=== PATIENT | female | born 1965 | race Caucasian/White ===

== ENCOUNTER → 2021-01-29 | Outpatient (CLI) | payer BC ==
[~2021-01-29] MED LIST: ASPIRIN 81M81 MG/TA2 PO; ATORVASTATIN CA40 MG PO; CYCLOBENZAPRINE10 M1 PO; DECADRON6 M1 PO; HYDROCHLOROTH12.5 M1 PO; HYDROCHLOROTH12.5 M2 PO; LOPRESSOR 225 MG/TAB PO; ONDANSETRON ODT8 MG PO; PREDNISONE20 MG PO; PROAIR HFA0.09 MG/AC IH; PROTONIX20 M1 PO; VIBRAMYCIN HYC100 MG PO; VITAMIN D31250 MCG PO; ZITHROMAX500 M2 PO
[2021-01-29 10:45] LABS: EOS # 0.2 (0.04-0.40); EOS % 2.9 % (1.0-5.0); HEMATOCRIT 42.7 % (37.0-47.0); HEMOGLOBIN 13.7 g/dL (12.5-16.0); LYMPH# 1.8 (1.50-4.00); MEAN CELL VOLUME 89 fl (78-100); MEAN CORPUSCULAR HEMOGLOBIN 29 pg (27-31); MEAN CORPUSCULAR HGB CONC 32 g/dL (33-37); MONO # 0.5 (0.20-0.80); NEU # 5.7 (1.40-6.50); PLATELET COUNT 361 K/mm3 (130-400); RED BLOOD COUNT 4.81 M/mm3 (4.10-5.30); RED CELL DISTRIBUTION WIDTH 12.6 % (11.5-14.5); WHITE BLOOD COUNT 8.3 K/mm3 (4.8-10.8)
[2021-01-29 10:49] LABS: POTASSIUM 4.6 mmol/L (3.5-5.1)
[2021-01-29 10:50] LABS: ALBUMIN 4.3 g/dL (3.5-5.0)
[2021-01-29 10:51] LABS: CALCIUM 9.7 mg/dL (8.3-10.5)
[2021-01-29 10:52] LABS: TOTAL PROTEIN 7.2 g/dL (6.4-8.3)
[2021-01-29 10:54] LABS: TOTAL BILIRUBIN 0.7 mg/dL (0.2-1.2)
== END ==
LOC: LAB 10:22
PROVIDERS: Family Medicine
DX: I10 Essential (primary) hypertension (principal); E78.5 Hyperlipidemia, unspecified; K59.09 Other constipation; E55.9 Vitamin D deficiency, unspecified

== ENCOUNTER → 2021-02-07 | Day surgery (SDC) | payer BC | LOC: MSO 07:33 | DX: Z12.11 Encounter for screening for malignant neoplasm of colon (principal); D12.2 Benign neoplasm of ascending colon; D12.0 Benign neoplasm of cecum; J44.9 Chronic obstructive pulmonary disease, unspecified; D12.5 Benign neoplasm of sigmoid colon; J45.20 Mild intermittent asthma, uncomplicated; I10 Essential (primary) hypertension; I25.2 Old myocardial infarction; E78.5 Hyperlipidemia, unspecified; K21.9 Gastro-esophageal reflux disease without esophagitis; F17.290 Nicotine dependence, other tobacco product, uncomplicated; E78.00 Pure hypercholesterolemia, unspecified; I25.10 Atherosclerotic heart disease of native coronary artery without angina pectoris; K59.09 Other constipation; E66.9 Obesity, unspecified; Z68.37 Body mass index [BMI] 37.0-37.9, adult; Z79.899 Other long term (current) drug therapy; Z79.82 Long term (current) use of aspirin | CPT/HCPCS: 00811; J2704; J7120 ==

== ENCOUNTER → 2021-03-11 | Outpatient (CLI) | payer BC | LOC: LAB 10:57 | DX: J02.9 Acute pharyngitis, unspecified (principal) ==

== ENCOUNTER 2021-05-02 20:10 | Emergency (ER) | payer BC ==
[2021-05-02] MEDS ORDERED: LOPRESSOR 225 MG/TAB PO (20:24)
[2021-05-02] MEDS ORDERED: HYDROCHLOROTH12.5 M1 PO (20:24)
[2021-05-02] MEDS ORDERED: PROTONIX20 M1 PO (20:25)
[2021-05-02] MEDS ORDERED: ASPIRIN 81M81 MG/TA2 PO (20:25)
[2021-05-02] MEDS ORDERED: VITAMIN D31250 MCG PO (20:26)
[2021-05-02] MEDS ORDERED: CYCLOBENZAPRINE10 M1 PO (20:57)
[2021-05-02 21:08] VITALS: BP 143/91
== END 2021-05-02 21:06 | disposition home or self-care (01) ==
LOC: ED 20:10
DX: M54.2 Cervicalgia (principal); F43.9 Reaction to severe stress, unspecified; I10 Essential (primary) hypertension; K21.9 Gastro-esophageal reflux disease without esophagitis; F17.200 Nicotine dependence, unspecified, uncomplicated

== ENCOUNTER → 2021-06-17 | Outpatient (CLI) | payer BC | LOC: LAB 15:20 | DX: U07.1 COVID-19 (principal) ==

== ENCOUNTER 2021-06-20 12:12 | Emergency (ER) | payer BC ==
[~2021-06-20 12:12] MED LIST changes: -ATORVASTATIN CA40 MG PO; -DECADRON6 M1 PO; -HYDROCHLOROTH12.5 M2 PO; -ONDANSETRON ODT8 MG PO; -PREDNISONE20 MG PO; -PROAIR HFA0.09 MG/AC IH; -VIBRAMYCIN HYC100 MG PO; -ZITHROMAX500 M2 PO
[2021-06-20] MEDS ORDERED: HYDROCHLOROTH12.5 M2 PO (12:22)
[2021-06-20] MEDS ORDERED: ATORVASTATIN CA40 MG PO (12:22)
[2021-06-20 13:36] LABS: ALBUMIN 4.1 g/dL (3.5-5.0); POTASSIUM 3.7 mmol/L (3.5-5.1)
[2021-06-20 13:37] LABS: CALCIUM 9.4 mg/dL (8.3-10.5)
[2021-06-20 13:39] LABS: TOTAL PROTEIN 7.5 g/dL (6.4-8.3)
[2021-06-20 13:40] LABS: TOTAL BILIRUBIN 0.7 mg/dL (0.2-1.2)
[2021-06-20 13:47] LABS: BASO # 0.03 (0.02-0.10); EOS # 0.01 (0.04-0.40); EOS % 0.1 % (1.0-5.0); HEMATOCRIT 45.8 % (37.0-47.0); LYMPH# 1.32 (1.50-4.00); MEAN CELL VOLUME 87 fl (78-100); MEAN CORPUSCULAR HEMOGLOBIN 28 pg (27-31); MEAN CORPUSCULAR HGB CONC 33 g/dL (33-37); MONO # 0.36 (0.20-0.80); PLATELET COUNT 260 K/mm3 (130-400); RED BLOOD COUNT 5.28 M/mm3 (4.10-5.30); RED CELL DISTRIBUTION WIDTH 12.7 % (11.5-14.5)
[2021-06-20] MEDS ORDERED: ZITHROMAX500 M2 PO (14:25)
[2021-06-20] MEDS ORDERED: PROAIR HFA0.09 MG/AC IH (14:25)
[2021-06-20] MEDS ORDERED: PREDNISONE20 MG PO (14:25)
[2021-06-20 15:55] VITALS: BP 148/89
== END 2021-06-20 15:45 | disposition home or self-care (01) ==
LOC: ED 12:12
PROVIDERS: Internal Medicine
DX: U07.1 COVID-19 (principal); J40 Bronchitis, not specified as acute or chronic; Z87.891 Personal history of nicotine dependence
CPT/HCPCS: J0696; J2930; J7030

== ENCOUNTER 2021-06-27 17:44 | Emergency (ER) | payer BC ==
[~2021-06-27 17:44] MED LIST changes: +ATORVASTATIN CA40 MG PO; +HYDROCHLOROTH12.5 M2 PO; +PREDNISONE20 MG PO; +PROAIR HFA0.09 MG/AC IH; +ZITHROMAX500 M2 PO
[2021-06-27 19:11] LABS: BASO # 0.01 (0.02-0.10); EOS # 0.05 (0.04-0.40); EOS % 0.8 % (1.0-5.0); HEMATOCRIT 43.9 % (37.0-47.0); HEMOGLOBIN 14.8 g/dL (12.5-16.0); LYMPH# 1.37 (1.50-4.00); MEAN CELL VOLUME 85 fl (78-100); MEAN CORPUSCULAR HEMOGLOBIN 29 pg (27-31); MEAN CORPUSCULAR HGB CONC 34 g/dL (33-37); MEAN PLATELET VOLUME 9.7 fl (7.4-10.4); MONO # 0.38 (0.20-0.80); NEU # 4.27 (1.40-6.50); PLATELET COUNT 221 K/mm3 (130-400); RED BLOOD COUNT 5.16 M/mm3 (4.10-5.30); RED CELL DISTRIBUTION WIDTH 12.9 % (11.5-14.5); WHITE BLOOD COUNT 6.2 K/mm3 (4.8-10.8)
[2021-06-27 19:23] LABS: ALBUMIN 3.3 g/dL (3.5-5.0)
[2021-06-27 19:24] LABS: POTASSIUM 3.2 mmol/L (3.5-5.1)
[2021-06-27 19:25] LABS: CALCIUM 9.1 mg/dL (8.3-10.5)
[2021-06-27 19:26] LABS: TOTAL PROTEIN 6.3 g/dL (6.4-8.3)
[2021-06-27 19:28] LABS: TOTAL BILIRUBIN 0.7 mg/dL (0.2-1.2)
[2021-06-27 19:55] LABS: D-DIMER 0.27 mg/L FEU (0.15-0.50)
[2021-06-27 20:15] LABS: ERYTHROCYTE SEDIMENTATION RATE 25 mm/hr (0-30)
[2021-06-27] MEDS ORDERED: DECADRON6 M1 PO (22:42)
[2021-06-27] MEDS ORDERED: VIBRAMYCIN HYC100 MG PO (22:42)
[2021-06-27] MEDS ORDERED: ONDANSETRON ODT8 MG PO (22:45)
[2021-06-27 23:13] VITALS: BP 130/75
== END 2021-06-27 23:13 | disposition home or self-care (01) ==
LOC: ED 17:44
PROVIDERS: Nurse Practitioner Family
DX: U07.1 COVID-19 (principal); J12.82 Pneumonia due to coronavirus disease 2019; E87.6 Hypokalemia; I25.10 Atherosclerotic heart disease of native coronary artery without angina pectoris; I25.2 Old myocardial infarction; I10 Essential (primary) hypertension; E78.00 Pure hypercholesterolemia, unspecified; F17.200 Nicotine dependence, unspecified, uncomplicated; Z79.899 Other long term (current) drug therapy; Z79.82 Long term (current) use of aspirin
CPT/HCPCS: J1100; J1885; J2405; J3480; J7030

== ENCOUNTER → 2021-08-20 | Outpatient (CLI) | payer BC ==
[~2021-08-20] MED LIST changes: +DECADRON6 M1 PO; +ONDANSETRON ODT8 MG PO; +VIBRAMYCIN HYC100 MG PO
[2021-08-20 14:55] LABS: BASO # 0.04 K/mm3 (0.02-0.10); EOS # 0.47 K/mm3 (0.04-0.40); EOS % 5.8 % (1.0-5.0); HEMATOCRIT 42.5 % (37.0-47.0); HEMOGLOBIN 13.8 g/dL (12.5-16.0); LYMPH# 2.38 K/mm3 (1.50-4.00); MEAN CELL VOLUME 88 fl (78-100); MEAN CORPUSCULAR HEMOGLOBIN 29 pg (27-31); MEAN CORPUSCULAR HGB CONC 33 g/dL (33-37); MEAN PLATELET VOLUME 8.8 fl (7.4-10.4); MONO # 0.51 K/mm3 (0.20-0.80); NEU # 4.66 K/mm3 (1.40-6.50); PLATELET COUNT 298 K/mm3 (130-400); RED BLOOD COUNT 4.82 M/mm3 (4.10-5.30); RED CELL DISTRIBUTION WIDTH 12.9 % (11.5-14.5); WHITE BLOOD COUNT 8.1 K/mm3 (4.8-10.8)
[2021-08-20 15:03] LABS: POTASSIUM 3.9 mmol/L (3.5-5.1); SODIUM 142 mmol/L (136-145)
[2021-08-20 15:05] LABS: GLUCOSE 95 mg/dL (65-105); TOTAL PROTEIN 6.6 g/dL (6.4-8.3)
[2021-08-20 15:06] LABS: CARBON DIOXIDE 27 mmol/L (22-29)
[2021-08-20 15:07] LABS: TOTAL BILIRUBIN 0.7 mg/dL (0.2-1.2)
[2021-08-20 15:10] LABS: AST-SGOT 20 U/L (5-34)
[2021-08-20 15:12] LABS: ALT/SGPT 18 U/L (0-55)
== END ==
LOC: LAB 14:40
PROVIDERS: Family Medicine
DX: I10 Essential (primary) hypertension (principal)

== ENCOUNTER → 2021-08-22 | Outpatient (CLI) | payer BC | LOC: RAD 10:28 | DX: Z13.6 Encounter for screening for cardiovascular disorders (principal); M79.89 Other specified soft tissue disorders ==

== ENCOUNTER → 2022-04-22 | Outpatient (CLI) | payer BC ==
[~2022-04-22] MED LIST changes: +ANTIVERT12.5 M1 PO; +MELOXICAM15 MG PO; +PANTOPRAZOLE SO40 MG PO
[2022-04-22 15:43] LABS: BASO # 0.05 K/mm3 (0.02-0.10); HEMATOCRIT 40.6 % (37.0-47.0); HEMOGLOBIN 13.5 g/dL (12.5-16.0); LYMPH# 1.96 K/mm3 (1.50-4.00); MEAN CELL VOLUME 89 fl (78-100); MEAN CORPUSCULAR HEMOGLOBIN 30 pg (27-31); MEAN CORPUSCULAR HGB CONC 33 g/dL (33-37); MEAN PLATELET VOLUME 8.5 fl (7.4-10.4); MONO # 0.57 K/mm3 (0.20-0.80); NEU # 7.12 K/mm3 (1.40-6.50); PLATELET COUNT 422 K/mm3 (130-400); RED BLOOD COUNT 4.56 M/mm3 (4.10-5.30); RED CELL DISTRIBUTION WIDTH 12.8 % (11.5-14.5); WHITE BLOOD COUNT 9.9 K/mm3 (4.8-10.8)
[2022-04-22 15:56] LABS: ALBUMIN 3.8 g/dL (3.5-5.0); POTASSIUM 3.7 mmol/L (3.5-5.1)
[2022-04-22 15:57] LABS: CALCIUM 9.3 mg/dL (8.3-10.5)
[2022-04-22 15:59] LABS: TOTAL PROTEIN 6.6 g/dL (6.4-8.3)
[2022-04-22 16:01] LABS: TOTAL BILIRUBIN 0.4 mg/dL (0.2-1.2)
[2022-04-22 17:05] LABS: URINE APPEARANCE HAZY; URINE BILIRUBIN NEGATIVE (NEGATIVE); URINE BLOOD NEGATIVE (NEGATIVE); URINE COLOR YELLOW; URINE GLUCOSE NEGATIVE (NEGATIVE); URINE KETONE TRACE (NEGATIVE); URINE LEUKOCYTE ESTERASE NEGATIVE (NEGATIVE); URINE NITRATE NEGATIVE (NEGATIVE); URINE PROTEIN(semi-quant) NEGATIVE (NEGATIVE); URINE UROBILINOGEN NORMAL (NORMAL); URINE WBC 0-1 /hpf (0-3)
[2022-04-22 17:06] LABS: URINE MUCUS PRESENT (NOT PRESENT)
== END ==
LOC: LAB 15:26
PROVIDERS: Family Medicine
DX: Z00.00 Encounter for general adult medical examination without abnormal findings (principal); Z12.39 Encounter for other screening for malignant neoplasm of breast; R46.81 Obsessive-compulsive behavior; J44.9 Chronic obstructive pulmonary disease, unspecified; I10 Essential (primary) hypertension; J30.2 Other seasonal allergic rhinitis; I25.10 Atherosclerotic heart disease of native coronary artery without angina pectoris; K21.9 Gastro-esophageal reflux disease without esophagitis; E66.9 Obesity, unspecified; E78.5 Hyperlipidemia, unspecified; E55.9 Vitamin D deficiency, unspecified; R10.32 Left lower quadrant pain

== ENCOUNTER → 2022-04-24 | Outpatient (CLI) | payer BC | LOC: RAD 09:00 | DX: K57.32 Diverticulitis of large intestine without perforation or abscess without bleeding (principal); Z98.890 Other specified postprocedural states | CPT/HCPCS: Q9967 ==

== ENCOUNTER → 2022-04-29 | Outpatient (CLI) | payer BC | LOC: LAB 15:14 → MAMMO 15:14 | DX: Z12.31 Encounter for screening mammogram for malignant neoplasm of breast (principal); E55.9 Vitamin D deficiency, unspecified ==

== ENCOUNTER → 2022-06-24 | Outpatient (CLI) | payer BC | LOC: RAD 08:05 | DX: I12.9 Hypertensive chronic kidney disease with stage 1 through stage 4 chronic kidney disease, or unspecified chronic kidney disease (principal); N18.31 Chronic kidney disease, stage 3a ==

== ENCOUNTER → 2022-08-04 | Outpatient (CLI) | payer BC ==
[2022-08-04 08:39] LABS: URINE WBC 0 /hpf (0-3)
[2022-08-04 08:52] LABS: BASO # 0.03 K/mm3 (0.02-0.10); EOS # 0.16 K/mm3 (0.04-0.40); HEMATOCRIT 42.9 % (37.0-47.0); HEMOGLOBIN 13.9 g/dL (12.5-16.0); LYMPH# 2.14 K/mm3 (1.50-4.00); MEAN CELL VOLUME 91 fl (78-100); MEAN CORPUSCULAR HEMOGLOBIN 29 pg (27-31); MEAN CORPUSCULAR HGB CONC 32 g/dL (33-37); MEAN PLATELET VOLUME 8.8 fl (7.4-10.4); MONO # 0.44 K/mm3 (0.20-0.80); NEU # 5.12 K/mm3 (1.40-6.50); PLATELET COUNT 370 K/mm3 (130-400); RED BLOOD COUNT 4.73 M/mm3 (4.10-5.30); RED CELL DISTRIBUTION WIDTH 12.6 % (11.5-14.5); WHITE BLOOD COUNT 7.9 K/mm3 (4.8-10.8)
[2022-08-04 08:57] LABS: ALBUMIN 3.9 g/dL (3.5-5.0)
[2022-08-04 08:58] LABS: POTASSIUM 3.7 mmol/L (3.5-5.1)
[2022-08-04 08:59] LABS: CALCIUM 9.3 mg/dL (8.3-10.5)
[2022-08-04 09:00] LABS: TOTAL PROTEIN 6.6 g/dL (6.4-8.3)
[2022-08-04 09:02] LABS: TOTAL BILIRUBIN 0.4 mg/dL (0.2-1.2)
[2022-08-04 09:27] LABS: URINE APPEARANCE CLEAR; URINE COLOR YELLOW
[2022-08-04 09:28] LABS: URINE BILIRUBIN NEGATIVE (NEGATIVE); URINE BLOOD NEGATIVE (NEGATIVE); URINE GLUCOSE NEGATIVE (NEGATIVE); URINE KETONE NEGATIVE (NEGATIVE); URINE LEUKOCYTE ESTERASE NEGATIVE (NEGATIVE); URINE NITRATE NEGATIVE (NEGATIVE); URINE PROTEIN(semi-quant) NEGATIVE (NEGATIVE); URINE UROBILINOGEN NORMAL (NORMAL)
[2022-08-05 21:07] LABS: CREATININE OTHER SOURCE 68 mg/dL (63-166)
== END ==
LOC: LAB 08-01 13:27
PROVIDERS: Internal Medicine Nephrology
DX: I12.9 Hypertensive chronic kidney disease with stage 1 through stage 4 chronic kidney disease, or unspecified chronic kidney disease (principal); N18.31 Chronic kidney disease, stage 3a

== ENCOUNTER → 2023-01-28 | Outpatient (CLI) | payer OTHER ==
[2023-01-28 10:11] LABS: ALBUMIN 3.9 g/dL (3.5-5.0)
[2023-01-28 10:12] LABS: POTASSIUM 3.6 mmol/L (3.5-5.1)
[2023-01-28 10:13] LABS: CALCIUM 9.4 mg/dL (8.3-10.5)
[2023-01-28 22:38] LABS: CREATININE OTHER SOURCE 19 mg/dL (63-166)
== END ==
LOC: LAB 09:28
PROVIDERS: Internal Medicine Nephrology
DX: I12.9 Hypertensive chronic kidney disease with stage 1 through stage 4 chronic kidney disease, or unspecified chronic kidney disease (principal); N18.31 Chronic kidney disease, stage 3a

== ENCOUNTER → 2023-07-17 | Outpatient (CLI) | payer OTHER ==
[~2023-07-17] MED LIST changes: +ZITHROMAX Z PA250 MG PO
== END ==
LOC: LAB 15:02
DX: R11.0 Nausea (principal); Z20.822 Contact with and (suspected) exposure to COVID-19

== ENCOUNTER → 2023-07-24 | Outpatient (CLI) | payer OTHER ==
[2023-07-24 07:38] LABS: POTASSIUM 3.3 mmol/L (3.5-5.1)
[2023-07-24 07:39] LABS: CALCIUM 9.4 mg/dL (8.3-10.5)
== END ==
LOC: LAB 07:15
PROVIDERS: Internal Medicine Nephrology
DX: I12.9 Hypertensive chronic kidney disease with stage 1 through stage 4 chronic kidney disease, or unspecified chronic kidney disease (principal); N18.31 Chronic kidney disease, stage 3a

== ENCOUNTER → 2023-08-19 | Outpatient (CLI) | payer OTHER | LOC: RAD 09:05 | DX: M17.11 Unilateral primary osteoarthritis, right knee (principal); M79.671 Pain in right foot ==

== ENCOUNTER → 2023-09-03 | Outpatient (CLI) | payer OTHER ==
[2023-09-03 09:44] LABS: BASO # 0.03 K/mm3 (0.02-0.10); EOS # 0.17 K/mm3 (0.04-0.40); EOS % 2.3 % (1.0-5.0); HEMOGLOBIN 13.3 g/dL (12.5-16.0); LYMPH# 2.28 K/mm3 (1.50-4.00); MEAN CELL VOLUME 90 fl (78-100); MEAN CORPUSCULAR HEMOGLOBIN 29 pg (27-31); MEAN CORPUSCULAR HGB CONC 32 g/dL (33-37); MEAN PLATELET VOLUME 8.9 fl (7.4-10.4); PLATELET COUNT 311 K/mm3 (130-400); RED BLOOD COUNT 4.55 M/mm3 (4.10-5.30); RED CELL DISTRIBUTION WIDTH 12.4 % (11.5-14.5); WHITE BLOOD COUNT 7.5 K/mm3 (4.8-10.8)
[2023-09-03 10:07] LABS: ALBUMIN 4.1 g/dL (3.5-5.0)
[2023-09-03 10:08] LABS: SODIUM 138 mmol/L (136-145)
[2023-09-03 10:09] LABS: CALCIUM 9.6 mg/dL (8.3-10.5)
[2023-09-03 10:10] LABS: GLUCOSE 108 mg/dL (65-105); TOTAL PROTEIN 6.7 g/dL (6.4-8.3)
[2023-09-03 10:11] LABS: CARBON DIOXIDE 24 mmol/L (22-29)
[2023-09-03 10:12] LABS: TOTAL BILIRUBIN 0.4 mg/dL (0.2-1.2)
[2023-09-03 10:15] LABS: AST-SGOT 13 U/L (5-34)
[2023-09-03 10:16] LABS: ALT/SGPT 10 U/L (0-55)
[2023-09-03 10:17] LABS: LIPASE 80 U/L (8-78)
[2023-09-03 10:43] LABS: TROPONIN-I < 0.030 ng/mL (<0.030)
[2023-09-04 19:03] LABS: VITAMIN D 1,25 DIHYDROXY 37.6 pg/mL (())
== END ==
LOC: AMSURD 09:17 → RAD 09:17
PROVIDERS: Nurse Practitioner
DX: Z12.39 Encounter for other screening for malignant neoplasm of breast (principal); J44.9 Chronic obstructive pulmonary disease, unspecified; I25.10 Atherosclerotic heart disease of native coronary artery without angina pectoris; K21.9 Gastro-esophageal reflux disease without esophagitis; E66.9 Obesity, unspecified; E55.9 Vitamin D deficiency, unspecified; N18.9 Chronic kidney disease, unspecified

== ENCOUNTER → 2023-10-09 | Outpatient (CLI) | payer OTHER | LOC: RAD 08:52 | DX: R06.09 Other forms of dyspnea (principal) ==

== ENCOUNTER → 2023-12-14 | Outpatient (CLI) | payer OTHER | LOC: LAB 09:13 | DX: R53.83 Other fatigue (principal) ==

== ENCOUNTER → 2023-12-21 | Outpatient (CLI) | payer OTHER | LOC: LAB 12:06 | DX: B34.9 Viral infection, unspecified (principal) ==

== ENCOUNTER 2024-03-18 02:39 | Emergency (ER) | payer OTHER ==
[2024-03-18] MEDS ORDERED: KAPSPARGO SPRIN25 MG PO (02:48)
[2024-03-18] MEDS ORDERED: BREZTRI AEROS10.7 GM IH (02:50)
[2024-03-18] MEDS ORDERED: CYCLOBENZAPRINE10 M1 PO (03:12)
[2024-03-18] MEDS ORDERED: Home Cyclobenzaprine 10 MG #2 TABS/PACK PO ONE (03:15)
[2024-03-18] MEDS ORDERED: Acetaminophen 500 MG TAB PO ONE (03:15)
[2024-03-18 03:27] VITALS: BP 143/98
== END 2024-03-18 03:27 | disposition home or self-care (01) ==
LOC: ED 02:39
DX: S16.1XXA Strain of muscle, fascia and tendon at neck level, initial encounter (principal); X58.XXXA Exposure to other specified factors, initial encounter

== ENCOUNTER → 2024-06-17 | Outpatient (REF) | payer OTHER ==
[~2024-06-17] MED LIST changes: +BREZTRI AEROS10.7 GM IH; +KAPSPARGO SPRIN25 MG PO
== END ==
LOC: LAB 08:47
DX: U07.1 COVID-19 (principal)

== ENCOUNTER 2024-09-06 21:59 | Emergency (ER) | payer SELFPAY ==
[~2024-09-06] VITALS: Ht 165.1 cm; Wt 90.5 kg
[2024-09-06] MEDS ORDERED: Ondansetron 4 MG/2 ML VIAL IV ONE (22:15)
[2024-09-06] MEDS ORDERED: fentaNYL 100 MCG/2 ML VIAL IV ONE (22:15)
[2024-09-06] MEDS ORDERED: NS 1,000 ML IV SCH (22:30)
[2024-09-06 22:34] LABS: BASO # 0.03 K/mm3 (0.02-0.10); EOS # 0.14 K/mm3 (0.04-0.40); EOS % 1.7 % (1.0-5.0); HEMATOCRIT 42.4 % (37.0-47.0); HEMOGLOBIN 14.1 g/dL (12.5-16.0); LYMPH# 1.77 K/mm3 (1.50-4.00); MEAN CELL VOLUME 90 fl (78-100); MEAN CORPUSCULAR HEMOGLOBIN 30 pg (27-31); MEAN CORPUSCULAR HGB CONC 33 g/dL (33-37); MEAN PLATELET VOLUME 8.8 fl (7.4-10.4); MONO # 0.59 K/mm3 (0.20-0.80); NEU # 5.46 K/mm3 (1.40-6.50); PLATELET COUNT 272 K/mm3 (130-400); RED BLOOD COUNT 4.72 M/mm3 (4.10-5.30); RED CELL DISTRIBUTION WIDTH 12.4 % (11.5-14.5)
[2024-09-06 22:37] LABS: ALBUMIN 4.2 g/dL (3.5-5.0)
[2024-09-06 22:39] LABS: CALCIUM 9.3 mg/dL (8.3-10.5)
[2024-09-06 22:40] LABS: TOTAL PROTEIN 6.9 g/dL (6.4-8.3)
[2024-09-06 22:42] LABS: TOTAL BILIRUBIN 0.7 mg/dL (0.2-1.2)
[2024-09-06] MEDS ORDERED: Ketorolac 30 MG/ML VIAL IM ONE (23:00)
[2024-09-06] MEDS ORDERED: Ketorolac 30 MG/ML VIAL IV ONE (23:15)
[2024-09-06] MEDS ORDERED: Amoxicillin/Clavulanate K+ 875/125 MG TAB PO ONE (23:30)
[2024-09-06] MEDS ORDERED: AMOXICILLIN AND1 TA2 PO (23:34)
[2024-09-06] MEDS ORDERED: ONDANSETRON HYDR4 MG PO (23:34)
[2024-09-06 23:37] LABS: URINE APPEARANCE CLEAR (CLEAR); URINE BILIRUBIN NEGATIVE (NEGATIVE); URINE BLOOD NEGATIVE (NEGATIVE); URINE COLOR YELLOW (YELLOW); URINE GLUCOSE NEGATIVE (NEGATIVE); URINE KETONE NEGATIVE (NEGATIVE); URINE LEUKOCYTE ESTERASE NEGATIVE (NEGATIVE); URINE NITRATE NEGATIVE (NEGATIVE); URINE PROTEIN(semi-quant) NEGATIVE (NEGATIVE); URINE WBC 0-1 /hpf (0-3)
[2024-09-06] MEDS ORDERED: Home HYDROcodone/Acetaminophen 5/325 MG #4 TABS/PACK PO ONE (23:45)
[2024-09-06 23:53] VITALS: BP 116/71
== END 2024-09-06 23:58 | disposition home or self-care (01) ==
LOC: ED 21:59
PROVIDERS: Physician Assistant
DX: K57.92 Diverticulitis of intestine, part unspecified, without perforation or abscess without bleeding (principal); Z90.49 Acquired absence of other specified parts of digestive tract
CPT/HCPCS: J1885; J2405; J3010; J7030

== ENCOUNTER → 2024-12-14 | Outpatient (CLI) | payer BC ==
[~2024-12-14] MED LIST changes: +AMOXICILLIN AND1 TA2 PO; +FLONASE ALLERG9.9 ML NS; +ONDANSETRON HYDR4 MG PO
[2024-12-14 08:36] LABS: BASO # 0.02 K/mm3 (0.02-0.10); EOS # 0.09 K/mm3 (0.04-0.40); EOS % 1.3 % (1.0-5.0); HEMATOCRIT 41.1 % (37.0-47.0); HEMOGLOBIN 13.4 g/dL (12.5-16.0); LYMPH# 2.28 K/mm3 (1.50-4.00); MEAN CELL VOLUME 90 fl (78-100); MEAN CORPUSCULAR HEMOGLOBIN 29 pg (27-31); MEAN CORPUSCULAR HGB CONC 33 g/dL (33-37); MEAN PLATELET VOLUME 8.5 fl (7.4-10.4); MONO # 0.38 K/mm3 (0.20-0.80); PLATELET COUNT 278 K/mm3 (130-400); RED BLOOD COUNT 4.57 M/mm3 (4.10-5.30); RED CELL DISTRIBUTION WIDTH 12.9 % (11.5-14.5); WHITE BLOOD COUNT 6.8 K/mm3 (4.8-10.8)
[2024-12-14 08:44] LABS: ALBUMIN 4.2 g/dL (3.5-5.0)
[2024-12-14 08:45] LABS: CALCIUM 9.4 mg/dL (8.3-10.5)
[2024-12-14 08:46] LABS: TOTAL PROTEIN 6.9 g/dL (6.4-8.3)
[2024-12-14 08:48] LABS: TOTAL BILIRUBIN 0.5 mg/dL (0.2-1.2)
== END ==
LOC: LAB 08:16
PROVIDERS: Family Medicine
DX: I10 Essential (primary) hypertension (principal); E78.5 Hyperlipidemia, unspecified; R05.9 Cough, unspecified